=== PATIENT | female | born 1960 | race American Indian/Alaskan Native ===

== ENCOUNTER 2016-12-28 10:37 | Day surgery (SDC) | payer BC ==
[2016-12-28 11:59] LABS: INR 1.04 (0.87-1.13)
--- NOTE | 2016-12-28 14:03 | Fluoroscopy Report ---
Cervical myelogram. History: Neck and right shoulder pain. Procedure and findings: The patient's skin surface overlying the lower lumbar region was prepped and draped using sterile technique. Local anesthetic was injected in the skin. Using fluoroscopic guidance, a 22-gauge spinal needle was advanced into the subarachnoid space at the L3-4 level. CSF appeared clear. 10 cc of Omnipaque 300 was injected. The contrast was advanced into the cervical region by gravity. Images obtained demonstrate ventral elevation of the contrast column at the C3-4 and C5-6 levels levels with minimal ventral elevation at C4-5. The nerve roots appear symmetrical. These findings will be correlated with the post mammogram CT in a separate report.
--- NOTE | 2016-12-28 14:08 | Cat Scan Report ---
Post mammogram CT of the cervical spine. History: Neck and right shoulder pain. Findings: In addition to axial images, sagittal and coronal reformatted images were obtained. The C2-3 level is unremarkable. At C3-4, there is a moderate central disc protrusion with associated effacement of the anterior thecal sac, but no cord compression. The neural foramina are patent. At C4-5, there is severe disc space narrowing with mild posterior hypertrophic changes centrally but no significant effacement of the subarachnoid space. At C5-6, there is a central osteophyte/disc complex with moderate effacement of the anterior subarachnoid space. Neural foramen are patent. There is no cord compression. The C6-7 and C7-T1 levels are unremarkable. The cervicomedullary junction is normal. Impression: Moderate disc protrusions and/or posterior osteophyte complexes are seen at the C3-4 and C5-6 levels with associated impingement on the subarachnoid space as described. No evidence of spinal stenosis. 2. Severe degenerative disc disease is seen at C4-5 with mild posterior hypertrophic changes, but no spinal stenosis.
--- NOTE | 2016-12-28 16:05 | Short Stay Summary ---
Short Stay Documentation Date of service: 12/28/16 - History Principal diagnosis: Neck pain - Allergies and Medications Current Medications: Allergies No Known Allergies Allergy (Verified 12/28/16 11:10) Home Medications Medication Instructions Recorded Confirmed Last Taken Type AtorvaSTATin [Lipitor] 40 mg PO QHS 12/28/16 12/28/16 12/27/16 History Carvedilol [Coreg] 25 mg PO QDAY 12/28/16 12/28/16 12/27/16 History Furosemide [Lasix] 20 mg PO QDAY 12/28/16 12/28/16 12/27/16 History Ramipril 5 mg PO QDAY 12/28/16 12/28/16 12/27/16 History Sitagliptin Phosphate [Januvia] 100 mg PO QDAY 12/28/16 12/28/16 12/27/16 History Spironolactone [Aldactone] 25 mg PO QDAY 12/28/16 12/28/16 12/27/16 History glipiZIDE [glipiZIDE ER] 5 mg PO QAM 12/28/16 12/28/16 12/27/16 History - Physical exam General appearance: no acute distress - Brief post op/procedure progress note Date of procedure: 12/28/16 Pre-op diagnosis: Neck pain Anesthesia: local Surgeon: AYDIN LOMELI Estimated blood loss: none Pathology: none Condition: stable - Disposition Condition at discharge: Good Disposition: DC-01 TO HOME OR SELFCARE Short Stay Discharge Plan Forms: [facility] Post Myelogram/LP
[2016-12-28 16:37] VITALS: BP 117/65
== END 2016-12-28 17:00 | disposition home or self-care (01) ==
LOC: CATHLABREC 10:37 → EDSTATUS 11:45 → CATHLABREC 17:00
PROVIDERS: ATTEND Orthopaedic Surgery
DX: M50.321 Other cervical disc degeneration at C4-C5 level (principal); M50.222 Other cervical disc displacement at C5-C6 level
CPT/HCPCS: 36415; 62302; 72126; 85610; 85730; Q9967